=== PATIENT | female | born 1975 | race African-American/Black ===

== ENCOUNTER → 2020-04-15 08:13 | Outpatient (BNVA) | payer OTHER, SELFPAY | PROVIDERS: Visit Provider Internal Medicine | DX: S83.241A Other tear of medial meniscus, current injury, right knee, initial encounter (principal); W10.9XXA Fall (on) (from) unspecified stairs and steps, initial encounter | CPT/HCPCS: 99213 ==

== ENCOUNTER → 2020-04-25 08:19 | Outpatient (BNVA) | payer OTHER, SELFPAY | PROVIDERS: Visit Provider Internal Medicine | DX: R10.31 Right lower quadrant pain (principal); M79.604 Pain in right leg | CPT/HCPCS: 99213 ==

== ENCOUNTER 2020-04-28 18:52 | Outpatient (REF) | payer OTHER, SELFPAY ==
--- NOTE | 2020-04-28 19:45 | MR_ITS ---
EXAMINATION: MR LUMBAR SPINE WITHOUT CONTRAST CLINICAL INFORMATION: Back injury. Right lower extremity radicular symptoms. COMPARISON: None. TECHNIQUE: MRI of the lumbar spine was obtained using routine sequences without contrast. FINDINGS: VERTEBRAL BODIES AND PARASPINAL STRUCTURES: The marrow signal is within normal limits. Endplate Schmorl's nodes and mild disc space narrowing visible at the lower thoracic levels. No marrow or soft tissue edema is seen. There are no compression fractures or subluxations. The paraspinal soft tissues are unremarkable. The imaged bony pelvis appears normal. CONUS MEDULLARIS AND CAUDA EQUINA: Normal, terminating at the level of L1-L2. No lower cord signal abnormality is seen. The cauda equina nerve roots are normal. Small fatty filum visible. SPINAL LEVELS: L1-L2: No disc pathology. No central canal stenosis or foraminal narrowing. L2-L3: Well-hydrated disc with a minimal annular bulge. Patent central canal and foramina. L3-L4: No disc abnormality. No central canal stenosis or foraminal narrowing. L4-L5: Disc degeneration and endplate Schmorl's nodes with hypertrophic facet arthropathy. No focal protrusion, central canal stenosis, or foraminal narrowing. L5-S1: Minimal posterior disc bulge and [id number] facet arthropathy. No central canal stenosis. Facet spurring encroaches upon the superior portions of the neural foramina with mild distortion of the exiting L5 nerve roots bilaterally. MR/MR lumbar spine wo con IMPRESSION: Mild lumbar spondylitic changes. No focal disc protrusion or central canal stenosis. Facet arthropathy mildly encroaches upon the neural foramina at L5-S1 with mild distortion of the exiting L5 nerve root.
== END 2020-04-28 18:53 | disposition home or self-care (01) ==
LOC: HO.MRI 18:52
PROVIDERS: PCP Physician Assistant; Visit Provider Internal Medicine
DX: S39.92XA Unspecified injury of lower back, initial encounter (principal); S39.91XA Unspecified injury of abdomen, initial encounter
CPT/HCPCS: 72148

== ENCOUNTER → 2020-05-01 08:08 | Outpatient (BNVA) | payer OTHER, SELFPAY | PROVIDERS: PCP Physician Assistant; Visit Provider Internal Medicine | DX: R10.31 Right lower quadrant pain (principal); M79.604 Pain in right leg | CPT/HCPCS: 99214 ==

== ENCOUNTER → 2020-05-14 08:03 | Outpatient (BNVA) | payer OTHER, SELFPAY | PROVIDERS: PCP Physician Assistant; Visit Provider Internal Medicine | DX: M54.41 Lumbago with sciatica, right side (principal); M79.604 Pain in right leg | CPT/HCPCS: 99214 ==

== ENCOUNTER 2020-05-16 13:23 | Outpatient (REF) | payer OTHER, SELFPAY ==
--- NOTE | 2020-05-16 14:06 | XR_ITS ---
EXAMINATION: BILATERAL HAND AND WRIST X-RAY CLINICAL INFORMATION: Abnormal and urologic findings in serum COMPARISON: None TECHNIQUE: 4 views of each hand and wrist FINDINGS: Bone alignment is normal. No fracture or dislocation is seen. Bone mineralization is normal. Joint spaces are normal. Soft tissues are normal. XR/XR hand wrist RT IMPRESSION: Unremarkable exam.
--- NOTE | 2020-05-16 14:06 | XR_ITS ---
EXAMINATION: BILATERAL HAND AND WRIST X-RAY CLINICAL INFORMATION: Abnormal and urologic findings in serum COMPARISON: None TECHNIQUE: 4 views of each hand and wrist FINDINGS: Bone alignment is normal. No fracture or dislocation is seen. Bone mineralization is normal. Joint spaces are normal. Soft tissues are normal. XR/XR hand wrist LT IMPRESSION: Unremarkable exam.
== END 2020-05-16 13:24 | disposition home or self-care (01) ==
LOC: HO.XRAY 13:23
PROVIDERS: PCP Physician Assistant; Visit Provider Student in an Organized Health Care Education/Training Program
DX: R76.8 Other specified abnormal immunological findings in serum (principal)
CPT/HCPCS: 73110; 73130; 99212

== ENCOUNTER → 2020-05-28 11:57 | Outpatient (BNVA) | payer OTHER, SELFPAY | PROVIDERS: PCP Physician Assistant; Visit Provider Internal Medicine | DX: M54.41 Lumbago with sciatica, right side (principal) | CPT/HCPCS: 99213 ==

== ENCOUNTER 2020-06-03 14:34 | Outpatient (REF) | payer OTHER, SELFPAY ==
[2020-06-03 16:59] LABS: INTERNATIONAL NORM RATIO 1.1 (0.9-1.1); Prothrombin Time 13.2 SEC (10.8-13.0)
[2020-06-05 15:02] LABS: Prot Elec - Alpha1 0.3 g/dL (0.2-0.3); Prot Elec - Alpha2 0.8 g/dL (0.5-0.9); Prot Elec - Beta 1 0.5 g/dL (0.4-0.6); Prot Elec - Beta 2 0.5 g/dL (0.2-0.5); Prot Elec - Gamma 1.1 g/dL (0.8-1.7); Prot Elec - Total Protein 7.2 g/dL (6.1-8.1)
[2020-06-06 15:13] LABS: Mitochondrial Antibodies NEGATIVE (NEGATIVE)
[2020-06-06 23:23] LABS: FIB-ALT 10 U/L (6-29); FIB-Alpha-2-Macroglobulin 172 mg/dL (106-279); FIB-Apolipoprotein A1 153 mg/dL (101-198); FIB-GGT 18 U/L (3-55); FIB-Haptoglobin 241 mg/dL (43-212); FIB-Total Bilirubin 0.3 mg/dL (0.2-1.2); Liver Fibrosis Score 0.04; Liver Fibrosis Stage F0; Nec Inflam Act Grade A0; Nec Inflam Act Score 0.02
[2020-06-08 09:22] LABS: Liver Kidney Microsomal Ab <=20.0 U (<=20.0)
== END 2020-06-03 14:35 | disposition home or self-care (01) ==
LOC: HO.LAB 14:34
PROVIDERS: PCP Physician Assistant; Visit Provider Internal Medicine Gastroenterology
DX: R76.8 Other specified abnormal immunological findings in serum (principal)
CPT/HCPCS: 36415; 81596; 84155; 84165; 85610; 86255; 86256; 86376; 99202

== ENCOUNTER → 2020-06-18 13:18 | Outpatient (BNVA) | payer OTHER, SELFPAY | PROVIDERS: PCP Physician Assistant; Visit Provider Internal Medicine | DX: M54.5 Low back pain (principal) | CPT/HCPCS: 99213 ==

== ENCOUNTER → 2020-07-01 14:40 | Outpatient (BNVA) | payer MEDICAID, SELFPAY | PROVIDERS: PCP Physician Assistant; Referring Provider Physician Assistant; Visit Provider Student in an Organized Health Care Education/Training Program | DX: Z76.89 Persons encountering health services in other specified circumstances (principal) ==

== ENCOUNTER → 2020-07-02 08:11 | Outpatient (BNVA) | payer OTHER, SELFPAY | PROVIDERS: PCP Physician Assistant; Visit Provider Internal Medicine | DX: M54.5 Low back pain (principal) | CPT/HCPCS: 99213 ==

== ENCOUNTER 2020-07-02 09:22 | Outpatient (REF) | payer OTHER, SELFPAY ==
--- NOTE | 2020-07-02 10:04 | US_ITS ---
EXAMINATION: US ABDOMEN COMPLETE CLINICAL INFORMATION: Fatty liver. COMPARISON: None TECHNIQUE: Real-time imaging of the abdominal viscera. FINDINGS: PANCREAS: Visualized portions unremarkable. ABDOMINAL AORTA: Unremarkable. INFERIOR VENA CAVA: Unremarkable. LIVER: Mild diffuse increased echotexture without focal abnormality. GALLBLADDER: Unremarkable. COMMON BILE DUCT: Normal in caliber measuring 0.4 cm in diameter. RIGHT KIDNEY: 10.9 cm. Unremarkable. LEFT KIDNEY: 11.4 cm. Unremarkable. SPLEEN: Normal. The spleen measures 10.1 cm in maximum dimension. FREE FLUID: None. US/US abdomen complete IMPRESSION: Fatty steatosis without other significant abnormality.
[2020-07-02 10:36] LABS: Alanine Aminotransferase 16 U/L (0-31); Albumin Level 4.1 g/dL (3.5-5.0); Alkaline Phosphatase 89 U/L (39-117); Aspartate Amino Transferase 21 U/L (5-31); Bilirubin Direct < 0.2 mg/dL (0.0-0.5); Bilirubin Total 0.3 mg/dL (0.0-1.0); Total Protein 7.2 g/dL (6.5-8.0)
[2020-07-03 11:17] LABS: Myeloperoxidase Antibody <1.0 AI; Proteinase 3 PR3 Antibodies <1.0 AI
[2020-07-10 12:33] LABS: Smooth Muscle Antibody <20 U (<20)
== END 2020-07-02 09:23 | disposition home or self-care (01) ==
LOC: HO.US 09:22
PROVIDERS: PCP Physician Assistant; Visit Provider Internal Medicine Gastroenterology
DX: R76.8 Other specified abnormal immunological findings in serum (principal); I31.3 Pericardial effusion (noninflammatory)
CPT/HCPCS: 36415; 76700; 80076; 86021; 86255

== ENCOUNTER 2020-07-11 12:46 | Outpatient (REF) | payer OTHER, SELFPAY ==
[2020-07-12 14:17] LABS: H Pylori Breath Test NOT DETECTED (NOT DETECTED)
== END 2020-07-11 12:47 | disposition home or self-care (01) ==
LOC: HO.LNP 12:46
PROVIDERS: PCP Physician Assistant; Visit Provider Surgery
DX: Z01.818 Encounter for other preprocedural examination (principal); E66.01 Morbid (severe) obesity due to excess calories; Z68.41 Body mass index [BMI] 40.0-44.9, adult; R06.02 Shortness of breath
CPT/HCPCS: 83013; 99202

== ENCOUNTER 2020-07-23 07:27 | Outpatient (REF) | payer OTHER, SELFPAY ==
--- NOTE | 2020-07-23 07:48 | ECG_ITS ---
Test Reason : SOB Blood Pressure : / mmHG Vent. Rate : 071 BPM Atrial Rate : 071 BPM P-R Int : 140 ms QRS Dur : 094 ms QT Int : 394 ms P-R-T Axes : 029 -08 020 degrees QTc Int : 428 ms Normal sinus rhythm Incomplete right bundle branch block Borderline ECG No previous ECGs available Referred By: Purvi Chavis Electronically Signed By:CJ YOUNGBLOOD
--- NOTE | 2020-07-23 07:58 | XR_ITS ---
EXAMINATION: XR CHEST CLINICAL INFORMATION: Shortness of breath COMPARISON: Previous chest x-ray March 2020 TECHNIQUE: 2 views of the chest were obtained. FINDINGS: The cardiac silhouette is slightly enlarged but stable. Hilar and mediastinal contours are unremarkable. The lungs are clear. There is no pleural effusion or pneumothorax. There are mild degenerative changes of the spine. XR/XR chest 2V IMPRESSION: Slightly enlarged cardiac silhouette similar to previous exam. No evidence for acute disease in the chest.
--- NOTE | 2020-07-23 07:58 | XR_ITS ---
EXAMINATION: BILATERAL WRIST X-RAY CLINICAL INFORMATION: ABNORMAL IMMUNOLOGICAL FINDINGS in serum COMPARISON: Previous hand and wrist x-ray May 2020 TECHNIQUE: 4 views of each wrist limiting scaphoid view FINDINGS: There may be mild ulnar minus variance. Bone alignment is otherwise normal. No fracture or dislocation is seen. Bone mineralization is normal. Joint spaces are normal. No erosions are seen. Soft tissues are normal. XR/XR wrist LT w scaphoid IMPRESSION: Question mild ulnar minus variance otherwise unremarkable exam.
--- NOTE | 2020-07-23 07:58 | XR_ITS ---
EXAMINATION: BILATERAL WRIST X-RAY CLINICAL INFORMATION: ABNORMAL IMMUNOLOGICAL FINDINGS in serum COMPARISON: Previous hand and wrist x-ray May 2020 TECHNIQUE: 4 views of each wrist limiting scaphoid view FINDINGS: There may be mild ulnar minus variance. Bone alignment is otherwise normal. No fracture or dislocation is seen. Bone mineralization is normal. Joint spaces are normal. No erosions are seen. Soft tissues are normal. XR/XR wrist RT w scaphoid IMPRESSION: Question mild ulnar minus variance otherwise unremarkable exam.
[2020-07-23 07:59] LABS: MANUAL DIFF FLAG NO
[2020-07-23 08:03] LABS: Basophils Percent Auto 0.2 % (0-2); Eosinophils Absolute Auto 0.1 X10*3/uL (0.0-0.4); Eosinophils Percent Auto 1.4 % (0-4); Hematocrit 40.9 % (37-47); Hemoglobin 13.1 g/dl (12.0-16.0); Imm Gran Abs Auto 0.01 X10*3/uL (0.00-0.03); Imm Gran Pct Auto 0.2 % (0.0-0.4); Lymphocytes Absolute Auto 1.2 X10*3/uL (1.2-4.9); Lymphocytes Percent Auto 23.8 % (20-40); Mean Corpuscular Hemoglobin 29.1 pg (27.0-33.0); Mean Corpuscular Volume 90.9 fL (80-98); Monocytes Absolute Auto 0.3 X10*3/uL (0.1-1.2); Monocytes Percent Auto 5.3 % (2-11); Neutrophils Absolute Auto 3.5 X10*3/uL (2.0-8.3); Neutrophils Percent Auto 69.1 % (45-73); Platelet Count 310 X10*3/uL (160-400); Red Cell Distribution Width 13.1 % (11.0-16.0); White Blood Count 5.1 X10*3/uL (4.8-10.8)
[2020-07-23 08:30] LABS: Alanine Aminotransferase 13 U/L (0-31); Albumin Level 4.1 g/dL (3.5-5.0); Alkaline Phosphatase 83 U/L (39-117); Anion Gap 10 (12-20); Aspartate Amino Transferase 17 U/L (5-31); Bilirubin Total 0.4 mg/dL (0.0-1.0); Blood Urea Nitrogen 13 mg/dL (9-16); C Reactive Protein 1.34 mg/dL (< or = 0.50); Carbon Dioxide 28 mmol/L (22-29); Chloride 105 mmol/L (96-108); Cholesterol 166 mg/dL; Estimated Glomerular Filt Rate > 60; Glucose Fasting 92 mg/dL (60-99); HDL Cholesterol 48 mg/dL; Iron 49 mcg/dL (30-160); LDL Cholesterol Calculated 103 mg/dl; Percent Iron Saturation 17 % (15-50); Sodium 139 mmol/L (135-145); Total Iron Binding Capacity 296 mcg/dL (228-428); Total Protein 7.3 g/dL (6.5-8.0); Triglycerides 79 mg/dL; Unsaturated Iron Binding 247 ug/dL
[2020-07-23 08:52] LABS: Thyroid Stimulating Hormone 0.88 uIU/mL (0.32-4.0); Vitamin D 25-OH Total 10.5 ng/mL (>30)
[2020-07-23 08:56] LABS: Vitamin B12 300 pg/mL (200-900)
[2020-07-24 16:33] LABS: Calcium (PTHI) 9.5 mg/dL (8.6-10.2); PTHI 58 pg/mL (14-64)
[2020-07-26 01:17] LABS: Zinc 91 mcg/dL (60-130)
[2020-07-27 08:27] LABS: Vitamin B1 <6 nmol/L (8-30)
[2020-07-28 17:58] LABS: Vitamin A 33 mcg/dL (38-98)
== END 2020-07-23 07:28 | disposition home or self-care (01) ==
LOC: HO.LAB 07:27
PROVIDERS: PCP Physician Assistant; Visit Provider Surgery
DX: Z01.818 Encounter for other preprocedural examination (principal); R06.02 Shortness of breath; I45.10 Unspecified right bundle-branch block; R76.9 Abnormal immunological finding in serum, unspecified; E55.9 Vitamin D deficiency, unspecified
CPT/HCPCS: 36415; 71046; 73110; 80053; 80061; 82306; 82607; 83540; 83970; 84425; 84443; 84590; 84630; 85025; 86140; 93005

== ENCOUNTER → 2020-07-23 08:22 | Outpatient (BNVA) | payer OTHER, SELFPAY | PROVIDERS: PCP Physician Assistant; Visit Provider Internal Medicine | DX: M54.5 Low back pain (principal); G54.9 Nerve root and plexus disorder, unspecified; M25.561 Pain in right knee | CPT/HCPCS: 99213 ==

== ENCOUNTER → 2020-07-24 08:03 | Outpatient (BNVA) | payer OTHER, SELFPAY | PROVIDERS: PCP Physician Assistant; Visit Provider Surgery ==

== ENCOUNTER 2020-07-30 07:44 | Day surgery (SDC) | payer OTHER, SELFPAY ==
--- NOTE | 2020-07-29 11:41 | P.CONAN_ITS ---
Documented by User: Edilia Wilburn 07/29/20 12:21 HPI - Anesthesia Eval Consult details Narrative: 44yo F for Upper Endoscopy PMFSH Past Medical History Medical History SANJAY positive Asthma Fibromyalgia History of migraine headaches History of umbilical hernia Mesenteric adenitis Pericardial effusion Rheumatoid factor positive Sleep apnea Family History Family History Father Arthritis History of open heart surgery Mother History of diabetes mellitus, type II History of cardiac arrhythmia Family history of high blood pressure Diabetes mellitus Hypertension Arthritis Brother Asthma Daughter No problems noted. Surgical History Surgical History History of section History of colonoscopy History of hysterectomy History of lateral meniscus repair of left knee History of sleeve gastrectomy Hx of endoscopy Social History Social History Alcohol intake: current Alcohol intake frequency: holidays/special occasions only Smoking Status: Never smoker Use of substances other than those prescribed or required for medical reasons: No Have you been hit, kicked, punched, or otherwise hurt by someone within the past year? If so, by whom?: No Advance Directives: No Advance Directives Information Provided: No Recently lost weight without trying: No Narrative Narrative: Last seen by cardiology 04/2020 without any need for further f/u. Recommended f/u with rheumatology for treatment of underlying rheumatic ds. Meds Allergies Allergy/AdvReac Type Severity Reaction Status Date / Time shrimp [SHRIMP] Allergy Severe ANAPHYLAXIS Verified 07/24/20 09:36 shrimp Allergy Severe Anaphylaxis Uncoded 07/24/20 09:36 Home Medications Medication Instructions Recorded Confirmed Type albuterol sulfate 90 mcg/actuation 2 puff INHALATION Q6H PRN 05/16/20 07/24/20 History aerosol inhaler cetirizine 10 mg tablet 10 mg PO DAILY 05/16/20 07/24/20 History epinephrine 0.3 mg/0.3 mL 0.3 mg IM Q15M PRN 05/16/20 07/24/20 History injection, auto-injector ibuprofen 800 mg tablet 800 mg PO Q8H 05/16/20 07/24/20 History Exam Exam Date and Time: July 29, 2020 1141 Pertinent Lab Results Pertinent Lab Results: Laboratory Tests 07/23/20 07/23/20 07:36 07:36 WBC 5.1 Hgb 13.1 Hct 40.9 Plt Count 310 Sodium 139 Potassium 4.0 Chloride 105 Carbon Dioxide 28 BUN 13 Creatinine 0.73 Narrative Narrative: EKG 07/2020 Normal sinus rhythm Incomplete right bundle branch block Borderline ECG No previous ECGs available Echo 04/2020 LVEF 60-65% No focal wall motion abn LV wall thickness is mildly increased Nml RV size and function No signif valve disease PA sys pressure wnl Mod-large circumferential pericard effusion measuring up to 1.8cm No evidence of cardiac tamponade Size of pericard effusion unchanged from 02/2019 Assessment and Plan Assessment Anesthesia Assessment: Chart Reviewed Documented by User: Zeinab Lira 07/30/20 08:36 [facility] Past Medical History Medical History SANJAY positive Asthma Fibromyalgia History of migraine headaches History of umbilical hernia Mesenteric adenitis Pericardial effusion Rheumatoid factor positive Sleep apnea Family History Family History Father Arthritis History of open heart surgery Mother History of diabetes mellitus, type II History of cardiac arrhythmia Family history of high blood pressure Diabetes mellitus Hypertension Arthritis Brother Asthma Daughter No problems noted. Family history of problems with anesthesia: No Surgical History Surgical History History of section History of colonoscopy History of hysterectomy History of lateral meniscus repair of left knee History of sleeve gastrectomy Hx of endoscopy History of Problems with Anesthesia: No Social History Social History Alcohol intake: current Alcohol intake frequency: holidays/special occasions only Smoking Status: Never smoker Use of substances other than those prescribed or required for medical reasons: No Have you been hit, kicked, punched, or otherwise hurt by someone within the past year? If so, by whom?: No Advance Directives: No Advance Directives Information Provided: No Recently lost weight without trying: No Meds Allergies Allergy/AdvReac Type Severity Reaction Status Date / Time shrimp [SHRIMP] Allergy Severe ANAPHYLAXIS Verified 07/24/20 09:36 shrimp Allergy Severe Anaphylaxis Uncoded 07/24/20 09:36 Home Medications Medication Instructions Recorded Confirmed Type albuterol sulfate 90 mcg/actuation 2 puff INHALATION Q6H PRN 05/16/20 07/24/20 History aerosol inhaler cetirizine 10 mg tablet 10 mg PO DAILY 05/16/20 07/24/20 History epinephrine 0.3 mg/0.3 mL 0.3 mg IM Q15M PRN 05/16/20 07/24/20 History injection, auto-injector ibuprofen 800 mg tablet 800 mg PO Q8H 05/16/20 07/24/20 History Exam Height,Weight and Vital Signs: Vital Signs Temp Pulse Resp BP Pulse Ox 07/30/20 08:02 98.9 F 108 H 18 112/78 97 Airway Mallampati Class: II TM Dist: >3cm Neck ROM: Full Heart: RRR Lungs: CTAB Assessment and Plan Assessment Anesthesia Assessment: Anesthesia Plan Discussed and Chart Reviewed Final Anesthetic Review NPO: Yes ASA Class: III Final Preanesthetic Review: No Changes in Pt Med Stat, Meds/Allgs Chart Re viewed, Consent Obtained/Reviewed and Anes Risks/Benef Reviewed Patient Risk: Intermediate Procedure Risk: Low Assessment/Block/Sedation in SS: Assess/Block/Sedation-SS Anesthetic Plan Anesthetic Plan: MAC: Disposition: Standard PACU
--- NOTE | 2020-07-29 15:17 | MHC.SHP ---
Pre-Procedural Eval Section B Chief Complaint: reflux disease Allergies: Allergies Allergy/AdvReac Type Severity Reaction Status Date / Time shrimp [SHRIMP] Allergy Severe ANAPHYLAXIS Verified 07/24/20 09:36 shrimp Allergy Severe Anaphylaxis Uncoded 07/24/20 09:36 Plan I have reviewed the history and physical and performed a pertinent physical examination on my patient. No changes have occurred unless specified.
[2020-07-30 07:58] VITALS: BMI 40.8
[2020-07-30 08:02] VITALS: BP 112/78; PULSE 108; RESP 18; TEMP 37.2; O2SAT 97
[2020-07-30] MEDS: Lactated Ringers 1,000 ML 100 ML IVCONT (08:13)
--- NOTE | 2020-07-30 08:34 | PM.OP ---
Brief Operative Note Date of Service: 07/30/20 Pre-op diagnosis: Weight gain after sleeve gastrectomy Post-op diagnosis: other (Same and normal upper endoscopy) Procedure: Esophagogastroduodenoscopy and antral biopsy x2 Implants: None Surgeon: Purvi Chavis MD Anesthesia: MAC Estimated blood loss (mL): 0 Pathology: other (Antrum x2) Condition: stable Disposition: PACU
[2020-07-30 09:02] VITALS: BP 103/64; PULSE 93; RESP 14; TEMP 37.2; O2SAT 96
[2020-07-30 09:17] VITALS: BP 101/67; PULSE 90; RESP 18; O2SAT 97
[2020-07-30 09:32] VITALS: BP 116/71; PULSE 91; RESP 18; O2SAT 98
--- NOTE | 2020-07-30 09:35 | OP_ITS ---
SURGEON: Purvi Chavis MD PREOPERATIVE DIAGNOSIS: POSTOPERATIVE DIAGNOSIS: PROCEDURE PERFORMED: Esophagogastroduodenoscopy and antral biopsy x2. ESTIMATED BLOOD LOSS: COMPLICATIONS: None. ANESTHESIA: Total intravenous anesthesia with propofol given by the nurse wood repatcher. ASSISTANTS: None. SPECIMENS: PREPROCEDURE DIAGNOSIS: Weight gain after sleeve gastrectomy many years ago. POSTPROCEDURE DIAGNOSIS: Normal upper endoscopy. DESCRIPTION OF PROCEDURE: The patient was brought into the operating room on the stretcher and placed in the left lateral decubitus position. A safety time-out was performed. A bite block was placed between the teeth. Total intravenous anesthesia was administered using propofol by the nurse wood repatcher. Once the patient was adequately sedated, the gastroscope was placed in the posterior oropharynx, passed down the esophagus, evaluating the esophageal mucosa which was normal. The GE junction was located at 36 cm from the incisors. The gastroscope was then passed into the stomach and stomach was evaluated. There were no mucosal lesions. No evidence of hiatal hernia. The gastric pouch was slightly enlarged, but with normal in size for its age. There was no evidence of torsion or stenosis. The gastroscope was passed to the pre-pyloric region. Antral biopsies x2 were taken to rule out H pylori. Gastroscope was passed through the pylorus to the 3rd portion of the duodenum. Gastroscope was retracted back in the stomach. Stomach was desufflated and the gastroscope was removed without difficulty. The patient tolerated the procedure well and was sent to recovery room in stable condition. FINDINGS: A GE junction was located at 36 cm from the incisors in the gastric pouch that is about the correct size for its age without any evidence of mucosal lesions or torsion or stenosis. CONDITION: Postprocedure, good. Purvi Chavis MD /MODL / [id number]
[2020-07-30] MEDS: Acetaminophen 325 MG TABLET 650 MG PO (09:45)
--- NOTE | 2020-07-30 10:07 | HO.POSTANES ---
Post Anesthesia Evaluation Post Anesthesia Evaluation Vital Signs: Vital Signs Temp Pulse Resp BP Pulse Ox 07/30/20 09:32 91 18 116/71 98 07/30/20 09:17 90 18 101/67 97 07/30/20 09:02 98.9 F 93 14 103/64 96 07/30/20 08:02 98.9 F 108 H 18 112/78 97 Anesthesia: Monitored Mental Status: Awake Pain Control: Satisfactory Nausea/Vomiting: None Hydration: Adequate Anesthesia-Related Issues: No Anes. Related Issues
== END 2020-07-30 09:58 | disposition home or self-care (01) ==
PROVIDERS: PCP Physician Assistant; Visit Provider Surgery
PROC: 0DJ08ZZ Inspection of Upper Intestinal Tract, Via Natural or Artificial Opening Endoscopic (ICD-10-PCS; CPT 43235; principal; 2020-07-30 08:30)
DX: K21.9 Gastro-esophageal reflux disease without esophagitis (principal); E66.01 Morbid (severe) obesity due to excess calories; Z68.41 Body mass index [BMI] 40.0-44.9, adult; R63.5 Abnormal weight gain; J45.909 Unspecified asthma, uncomplicated; Z98.84 Bariatric surgery status; R76.0 Raised antibody titer; M05.9 Rheumatoid arthritis with rheumatoid factor, unspecified; Z79.899 Other long term (current) drug therapy
CPT/HCPCS: 43239; 88305; 88342; J2250

== ENCOUNTER → 2020-07-31 15:07 | Outpatient (BNVA) | payer OTHER, SELFPAY | PROVIDERS: PCP Physician Assistant; Visit Provider Anesthesiology | DX: M47.817 Spondylosis without myelopathy or radiculopathy, lumbosacral region (principal); M54.5 Low back pain; M51.36 Other intervertebral disc degeneration, lumbar region | CPT/HCPCS: 99202 ==

== ENCOUNTER 2020-08-05 17:40 | Outpatient (REF) | payer OTHER, SELFPAY ==
--- NOTE | 2020-08-05 18:15 | MR_ITS ---
EXAMINATION: MR KNEE WITHOUT CONTRAST, RIGHT CLINICAL INFORMATION: Pain while bending knee. Stiffness. Near-fall. COMPARISON: None TECHNIQUE: MRI of the knee without contrast was performed using routine sequences on a high-field scanner. FINDINGS: MENISCI: Medial Meniscus: Complex tear of the posterior horn and body is primarily horizontal in orientation, extending to the undersurface of both the posterior horn and body near the free edge margin. Near the posterior root insertion, there is an associated radial component of the meniscus occurring 1 cm from the insertion and sparing the superior third. Surrounding soft tissues are edematous. The meniscal body is partially extruded medially. Lateral Meniscus: Free edge fraying is present at the posterior horn. No tears. LIGAMENTS: Cruciate: Intact. Collateral: Edema signal around the MCL is likely reactive to the underlying meniscal abnormality. Collateral ligaments are intact. EXTENSOR MECHANISM: Patellar enthesopathic spurs is present at the patellar tendon origin. No tendinosis. Quadriceps and patellar tendons are intact. ARTICULAR CARTILAGE/BONE: Patellofemoral Compartment: At the median ridge of the patella, there is a 1.7 x 1.7 cm area of high-grade cartilage loss with full-thickness chondral fibrillation and articular cortical irregularity as well as subchondral cystic change. More mild surrounding chondral thinning is present in this region. Moderate sized marginal osteophytes. In the superior aspect of the trochlear groove, there is a 1 x 0.8 cm area of high-grade chondral delamination. Additional chondral fissuring is present at the inferior aspect of the medial trochlear facet. Small trochlear osteophytes. Medial Compartment: Moderate sized marginal osteophytes. Moderate nonuniform chondral thinning is present at the medial femoral condyle, more pronounced posteriorly at the posterior weightbearing surface. [id number] chondral thinning is also present of the tibial plateau, most pronounced medially, with associated subchondral edema signal. Lateral Compartment: Mild chondral thinning and chondral fibrillation are present at the lateral tibial plateau posteriorly. Small marginal osteophytes. JOINT FLUID AND BURSAE: Moderate sized joint effusion. There is mild synovitis and hypertrophy of the subsynovial fat. MR/MR knee RT wo con IMPRESSION: 1. Complex tear of the posterior horn and body of the medial meniscus with a radial component near the posterior root insertion and extrusion of the meniscal body. 2. [id number] medial and patellofemoral compartment osteoarthritis. Focal high-grade chondromalacia is present at the patella centrally. 3. Minimal lateral compartment osteoarthritis with free edge fraying at the posterior horn of the lateral meniscus. 4. Moderate sized joint effusion with mild synovitis.
== END 2020-08-05 17:41 | disposition home or self-care (01) ==
LOC: HO.MRI 17:40
PROVIDERS: Visit Provider Internal Medicine
DX: M25.561 Pain in right knee (principal)
CPT/HCPCS: 73721

== ENCOUNTER → 2020-08-06 08:07 | Outpatient (BNVA) | payer OTHER, SELFPAY | PROVIDERS: PCP Physician Assistant; Visit Provider Internal Medicine | DX: M54.9 Dorsalgia, unspecified (principal); M23.8X1 Other internal derangements of right knee | CPT/HCPCS: 99214 ==

== ENCOUNTER → 2020-08-11 13:39 | Outpatient (BNVA) | payer OTHER, SELFPAY | PROVIDERS: Visit Provider Orthopaedic Surgery | DX: S83.241A Other tear of medial meniscus, current injury, right knee, initial encounter (principal) | CPT/HCPCS: 99202 ==

== ENCOUNTER → 2020-08-21 08:18 | Outpatient (BNVA) | payer OTHER, SELFPAY | PROVIDERS: PCP Physician Assistant; Visit Provider Internal Medicine | DX: M23.206 Derangement of unspecified meniscus due to old tear or injury, right knee (principal); M17.11 Unilateral primary osteoarthritis, right knee; M54.9 Dorsalgia, unspecified | CPT/HCPCS: 99213 ==

== ENCOUNTER 2020-08-27 08:00 | Day surgery (SDC) | payer OTHER, SELFPAY ==
[2020-08-20 19:14] VITALS: BMI 39.9
--- NOTE | 2020-08-26 09:28 | HO.ANESPROP2 ---
Documented by User: Edilia Wilburn 08/26/20 09:40 HPI - Anesthesia Eval Consult details Narrative: 44yo F for Knee Arthroscopy PMFSH Active Problems Active Problems: All Active Problems (Updated 08/19/20 @ 19:00 by Scotty Phillips MD) Morbid obesity due to excess calories (Acute) Preoperative examination (Acute) Shortness of breath (Acute) Body mass index (BMI) of 40.1 to 44.9 in adult (Acute) Vitamin D deficiency (Acute) Vitamin B1 deficiency (Acute) Vitamin A deficiency (Acute) NAFL (nonalcoholic fatty liver) (Acute) Tear of medial meniscus of right knee (Acute) Disc degeneration, lumbar (Acute) Low back pain (Acute) 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 myelopathy (Acute) Pericardial effusion (Acute) Rheumatoid factor positive (Acute) SANJAY positive (Acute) Past Medical History Medical History SANJAY positive Asthma Disc degeneration, lumbar Fibromyalgia History of migraine headaches History of umbilical hernia Low back pain Mesenteric adenitis Pericardial effusion Rheumatoid factor positive Sleep apnea 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 Surgical History Surgical History History of section History of colonoscopy History of hysterectomy History of lateral meniscus repair of left knee History of sleeve gastrectomy Hx of endoscopy Hx of esophagogastroduodenoscopy Social History Social History Are you a primary resident care provider to a significant other at home: No Do you presently have visiting nurse or other home services: No Alcohol intake: current Alcohol intake frequency: holidays/special occasions only Smoking Status: Never smoker Use of substances other than those prescribed or required for medical reasons: No Advance Directives: No Advance Directives Information Provided: No Advance Directives on File: No Recently lost weight without trying: No Current occupational status: employed Current occupation: [employer] - [employer] Meds Allergies Allergy/AdvReac Type Severity Reaction Status Date / Time shrimp [SHRIMP] Allergy Severe ANAPHYLAXIS Verified 08/27/20 08:21 Home Medications Medication Instructions Recorded Confirmed Last Taken Type albuterol sulfate 90 mcg/actuation 2 puff INHALATION Q6H PRN 05/16/20 08/20/20 Unknown History aerosol inhaler cetirizine 10 mg tablet 10 mg PO DAILY 05/16/20 08/20/20 Unknown History epinephrine 0.3 mg/0.3 mL 0.3 mg IM Q15M PRN 05/16/20 08/20/20 Unknown History injection, auto-injector ibuprofen 800 mg tablet 800 mg PO Q8H 05/16/20 08/20/20 Unknown History vitamin B complex 1 tab PO DAILY 07/31/20 08/20/20 Unknown History Exam Exam Date and Time: August 26, 202028 Height,Weight and Vital Signs: Height 5 ft 1 in Weight 95.708 kg Pertinent Lab Results Pertinent Lab Results: Laboratory Tests 07/23/20 07/23/20 07:36 07:36 WBC 5.1 Hgb 13.1 Hct 40.9 Plt Count 310 Sodium 139 Potassium 4.0 Chloride 105 Carbon Dioxide 28 BUN 13 Creatinine 0.73 Narrative Narrative: EKG 07/2020 Normal sinus rhythm Incomplete right bundle branch block Borderline ECG No previous ECGs available Echo 04/2020 LVEF 60-65% No focal wall motion abn LV wall thickness is mildly increased Nml RV size and function No signif valve disease PA sys pressure wnl Mod-large circumferential pericard effusion measuring up to 1.8cm No evidence of cardiac tamponade Size of pericard effusion unchanged from 02/2019 Assessment and Plan Assessment Anesthesia Assessment: Chart Reviewed Documented by User: Abigail Diaz 08/27/20 09:55 [facility] Past Medical History Medical History SANJAY positive Asthma Disc degeneration, lumbar Fibromyalgia History of migraine headaches History of umbilical hernia Low back pain Mesenteric adenitis Pericardial effusion Rheumatoid factor positive Sleep apnea 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 Surgical History Surgical History History of section History of colonoscopy History of hysterectomy History of lateral meniscus repair of left knee History of sleeve gastrectomy Hx of endoscopy Hx of esophagogastroduodenoscopy Social History Social History Are you a primary resident care provider to a significant other at home: No Do you presently have visiting nurse or other home services: No Alcohol intake: current Alcohol intake frequency: holidays/special occasions only Smoking Status: Never smoker Use of substances other than those prescribed or required for medical reasons: No Advance Directives: No Advance Directives Information Provided: No Advance Directives on File: No Recently lost weight without trying: No Current occupational status: employed Current occupation: [employer] - [employer] Meds Allergies Allergy/AdvReac Type Severity Reaction Status Date / Time shrimp [SHRIMP] Allergy Severe ANAPHYLAXIS Verified 08/27/20 08:21 Home Medications Medication Instructions Recorded Confirmed Last Taken Type albuterol sulfate 90 mcg/actuation 2 puff INHALATION Q6H PRN 05/16/20 08/20/20 Unknown History aerosol inhaler cetirizine 10 mg tablet 10 mg PO DAILY 05/16/20 08/20/20 Unknown History epinephrine 0.3 mg/0.3 mL 0.3 mg IM Q15M PRN 05/16/20 08/20/20 Unknown History injection, auto-injector ibuprofen 800 mg tablet 800 mg PO Q8H 05/16/20 08/20/20 Unknown History vitamin B complex 1 tab PO DAILY 07/31/20 08/20/20 Unknown History Exam Airway Mallampati Class: II TM Dist: >3cm Neck ROM: Full Assessment and Plan Assessment Anesthesia Assessment: Anesthesia Plan Discussed and Chart Reviewed Final Anesthetic Review NPO: Yes ASA Class: III Final Preanesthetic Review: No Changes in Pt Med Stat, Meds/Allgs Chart Reviewed, Consent Obtained/Reviewed and Anes Risks/Benef Reviewed Patient Risk: Intermediate Procedure Risk: Low Assessment/Block/Sedation in SS: Assess/Block/Sedation-SS Anesthetic Plan Anesthetic Plan: GA Disposition: Standard PACU
[2020-08-27] VITALS (10 sets, daily range): BP systolic 111–127; BP diastolic 64–76; PULSE 61–76; RESP 16–20; TEMP 36.3–37.2; O2SAT 96–100
[2020-08-27] MEDS: Lactated Ringers 1,000 ML 50 ML IV (08:56)
--- NOTE | 2020-08-27 11:00 | PM.OP ---
Brief Operative Note Date of Service: 08/27/20 Pre-op diagnosis: right knee mmt Post-op diagnosis: other (medial meniscus tear and OA) Procedure: right knee arthroscopy with partial mm and chondroplasty Surgeon: Bhavik Muñoz MD Anesthesia: GETA and local Estimated blood loss (mL): 5 Tourniquet time (min): 18 IV fluids (mL): 500 Urine output (mL): 0 Pathology: none sent Condition: stable Disposition: PACU
--- NOTE | 2020-08-27 11:02 | W.PM.OPN ---
Operative Note Operative Note Date of Service: 08/27/20 Narrative: Pre-op diagnosis: Right knee medial meniscus tear Post-op diagnosis: 1) Right knee medial meniscus tear 2) Osteoarthritis Procedure: Right knee with partial medial meniscectomy and chondroplasty Implants: none Weatherization Installer:none Anesthesia: GETA and local Estimated blood loss (mL): 5 Tourniquet time (min): 18 IV fluids (mL): 500 Pathology: none sent Condition: stable Disposition: PACU Procedure in detail: Patient was brought to the operating room placed supine on the arthroscopic table and prepped and draped in standard sterile fashion. A time-out was called to identify proper site proper procedure proper surgeon and IV antibiotics per weight were administered. I began by exsanguinating the limb and insufflating tourniquet to 300 mm Hg. Then made a standard anterolateral stab incision. The knee was insufflated with water and 30 degree arthroscope was placed. There was grade 1 fibrillations of the patella but overall suprapatellar pouch was clean and the gutters were clean. I descended into the medial compartment where I made my medial portal under direct visualization. There was obvious of complex tear of the body and posterior horn of the medial meniscus. Root was intact and there was grade 1 changes with scattered grade 3 changes throughout the medial compartment. I used a combination of biter shaver and cautery to remove unstable portions of the meniscus. Approximately 40% meniscal volume was removed. The ACL was examined and found to be intact and the lateral compartment also was without the need for intervention. I then removed all instrumentation and closed the portals with skin glue. 25 mL of 2% Marcaine with epinephrine was injected into the joint and the surrounding soft tissues. Patient was then placed in sterile dressing extubated brought recovery room stable condition. There were no known complications.
[2020-08-27] MEDS: oxyCODONE HCl Immed Release 5 MG TABLET 10 MG PO (11:19)
[2020-08-27] MEDS: fentaNYL citrate/PF 100 MCG/2 ML VIAL 50 MCG IVPUSH (11:19)
== END 2020-08-27 13:30 | disposition home or self-care (01) ==
PROVIDERS: PCP Physician Assistant; Visit Provider Orthopaedic Surgery
PROC: (CPT 29870; principal; 2020-08-27 10:00)
DX: S83.231A Complex tear of medial meniscus, current injury, right knee, initial encounter (principal); M17.11 Unilateral primary osteoarthritis, right knee; M22.2X1 Patellofemoral disorders, right knee; M54.5 Low back pain; X58.XXXA Exposure to other specified factors, initial encounter; Y93.A3 Activity, aerobic and step exercise; Y92.69 Other specified industrial and construction area as the place of occurrence of the external cause; Y99.0 Civilian activity done for income or pay; M05.9 Rheumatoid arthritis with rheumatoid factor, unspecified; M79.7 Fibromyalgia; J45.909 Unspecified asthma, uncomplicated; E66.01 Morbid (severe) obesity due to excess calories; Z68.41 Body mass index [BMI] 40.0-44.9, adult; G47.30 Sleep apnea, unspecified; Z79.899 Other long term (current) drug therapy; Z98.84 Bariatric surgery status
CPT/HCPCS: 29881; J0171; J0690; J1100; J1885; J2405; J3010

== ENCOUNTER → 2020-09-08 10:07 | Outpatient (BNVA) | payer OTHER, SELFPAY | PROVIDERS: PCP Physician Assistant; Visit Provider Physician Assistant | DX: S83.241A Other tear of medial meniscus, current injury, right knee, initial encounter (principal) | CPT/HCPCS: 99212 ==

== ENCOUNTER 2020-09-16 06:05 | Outpatient (REF) | payer OTHER, SELFPAY ==
--- NOTE | ~2020-09-16 | FL_ITS ---
EXAMINATION: XR FLUOROSCOPY WITH IMAGES CLINICAL INFORMATION: Intervertebral disc degeneration COMPARISON: None. TECHNIQUE: Fluoroscopy performed by Radha Pereira NP. Fluoroscopy time: 0.2 minutes DAP: 1.6 Gycm2 Images: 2 FINDINGS: Initial lateral view of the lumbar sacral spine demonstrates needle placement projecting over the spinal canal at the L5-S1 disc space level. Second image demonstrates needle placement and epidural contrast injection adjacent at the left L5 level. FL/FL guidance in treatment room IMPRESSION: Fluoroscopy guidance for left L5 transforaminal epidural injection.
== END 2020-09-16 06:06 | disposition home or self-care (01) ==
LOC: HO.RADIR 06:05
PROVIDERS: Visit Provider Anesthesiology
DX: M51.36 Other intervertebral disc degeneration, lumbar region (principal); M47.817 Spondylosis without myelopathy or radiculopathy, lumbosacral region
CPT/HCPCS: 64483; J3300; Q9967

== ENCOUNTER → 2020-10-06 13:52 | Outpatient (BNVA) | payer OTHER, SELFPAY | PROVIDERS: Visit Provider Physician Assistant | DX: S83.241D Other tear of medial meniscus, current injury, right knee, subsequent encounter (principal) | CPT/HCPCS: 99212 ==

== ENCOUNTER → 2020-10-24 09:33 | Outpatient (BNVA) | payer OTHER, SELFPAY | PROVIDERS: PCP Physician Assistant; Visit Provider Physician Assistant | DX: S83.241D Other tear of medial meniscus, current injury, right knee, subsequent encounter (principal) | CPT/HCPCS: 99212 ==

== ENCOUNTER → 2020-11-05 09:59 | Outpatient (BNVA) | payer OTHER, SELFPAY | PROVIDERS: PCP Physician Assistant; Visit Provider Anesthesiology ==

== ENCOUNTER → 2020-11-06 08:18 | Outpatient (BNVA) | payer OTHER, SELFPAY | PROVIDERS: PCP Physician Assistant; Visit Provider Anesthesiology | DX: M47.817 Spondylosis without myelopathy or radiculopathy, lumbosacral region (principal); M54.5 Low back pain; M51.36 Other intervertebral disc degeneration, lumbar region; M46.1 Sacroiliitis, not elsewhere classified | CPT/HCPCS: 99212 ==

== ENCOUNTER → 2020-11-13 09:06 | Outpatient (BNVA) | payer OTHER, SELFPAY | PROVIDERS: PCP Physician Assistant; Visit Provider Orthopaedic Surgery | DX: S83.241D Other tear of medial meniscus, current injury, right knee, subsequent encounter (principal) | CPT/HCPCS: 20610; 99212; J1100 ==

== ENCOUNTER → 2020-11-21 09:52 | Outpatient (BNVA) | payer OTHER, SELFPAY | PROVIDERS: PCP Physician Assistant; Visit Provider Physician Assistant | DX: E66.01 Morbid (severe) obesity due to excess calories (principal); S83.241A Other tear of medial meniscus, current injury, right knee, initial encounter; M25.561 Pain in right knee; M51.36 Other intervertebral disc degeneration, lumbar region; M79.7 Fibromyalgia; M54.5 Low back pain; M46.1 Sacroiliitis, not elsewhere classified; M47.817 Spondylosis without myelopathy or radiculopathy, lumbosacral region; Z91.013 Allergy to seafood; Z68.41 Body mass index [BMI] 40.0-44.9, adult | CPT/HCPCS: 99212 ==

== ENCOUNTER 2020-11-26 17:00 | Outpatient (RCR) | payer OTHER, SELFPAY ==
--- NOTE | 2020-09-18 18:17 | MHC.PT.EP ---
[facility] [place] Office [place] Office [place] Office [address] [phone] F: [phone] F: [phone] F: [phone] F: [phone] Physical Therapy Plan of Care Date of Evaluation: 09/18/20 Date of Surgery: 08/27/20 Diagnosis: R knee medial menisectomy and chronroplasty DOS 08/27/20 Assessment: Pt is a 44 y/o female referred to PT for eval and treat of s/p arthroscopic R medial meniscectomy and chondroplasty resulting in decreased tolerance for standing and walking for duration, rolling in bed, performing squatting activities as well as heavy HH chores secondary to decreased R knee and B hip strength, decreased R knee ROM, gait abnormality, healing process, and pain. Pt is deemed an appropriate candidate to receive skilled PT in order to address her physical limitations to improve her functional ability. Frequency and Duration: The patient will be seen 2 x / wk x 6 wks. Short Term Goals: In 1 week: initiate HEP with evidence of compliance. In 3 weeks: full knee extension achieved; initial 20 degrees at assessment. In 3 weeks: knee flexion > 119 degrees; initial 85. Chcf Goals: In 6 weeks; descends stairs reciprocally; initial: unable. In 6 weeks: I with HEP. In 6 weeks: improve R knee extension MMT to > 4+/5. In 6 weeks: Pt will be able to walk 1 mile with managed symptoms; initial: unable. Treatment Plan: Modalities to reduce pain, spasms and effusion. Manual therapy to restore motion and function. Therapeutic exercise to improve strength and flexibility. Neuromuscular re-education for posture and balance. Therapeutic activities to return to functional activities of daily living. Electronically signed by: Jason Lockett PT. Please sign and return to therapist. Thank you for your referral.
--- NOTE | 2021-01-27 11:48 | MHC.PT.DC ---
[facility] [place] Office [place] Office [place] Office [address] [facility] [phone] F: [phone] F: [phone] F: [phone] F: [phone] Physical Therapy Discharge Report Diagnosis: R knee medial menisectomy and chronroplasty DOS 08/27/20 Date of Surgery: 08/27/20 Date of Evaluation: 09/18/20 Date of Discharge: 01/27/21 Treatments to Date: 16 Cancellations to Date: 2 No Shows to Date: 3 Discharge Status: Improved Function Independent with HEP Visit Non-compliance Discharge Summary: Pt connie NWB exs without an increase in c/o knee pain. Pt I with HEP Electronically signed by: Jason Lockett PT. Please sign and return to therapist. Thank you for your referral.
== END 2021-01-27 11:48 | disposition home or self-care (01) ==
LOC: HO.PTCHIC 17:00
PROVIDERS: PCP Physician Assistant; Visit Provider Physician Assistant
DX: S83.241A Other tear of medial meniscus, current injury, right knee, initial encounter (principal)
CPT/HCPCS: 97110; 97140; 97161; 97164

== ENCOUNTER 2020-12-16 06:30 | Outpatient (REF) | payer OTHER, SELFPAY | END 2020-12-16 06:31 | disposition home or self-care (01) | LOC: HO.RADIR 06:30 | PROVIDERS: Visit Provider Anesthesiology | DX: Z13.89 Encounter for screening for other disorder (principal) | CPT/HCPCS: J3300; Q9967 ==

== ENCOUNTER 2021-01-07 14:39 | Outpatient (REF) | payer OTHER, SELFPAY ==
[2021-01-07 15:50] LABS: MANUAL DIFF FLAG NO
[2021-01-07 15:56] LABS: Basophils Percent Auto 0.3 % (0-2); Eosinophils Absolute Auto 0.1 X10*3/uL (0.0-0.4); Eosinophils Percent Auto 0.6 % (0-4); Hemoglobin 13.1 g/dl (12.0-16.0); Imm Gran Abs Auto 0.03 X10*3/uL (0.00-0.03); Imm Gran Pct Auto 0.3 % (0.0-0.4); Lymphocytes Absolute Auto 1.6 X10*3/uL (1.2-4.9); Lymphocytes Percent Auto 17.6 % (20-40); Mean Corpuscular Volume 90.7 fL (80-98); Mean Platelet Volume 12.5 fL (9.4-12.3); Monocytes Absolute Auto 0.4 X10*3/uL (0.1-1.2); Monocytes Percent Auto 4.5 % (2-11); Neutrophils Absolute Auto 6.9 X10*3/uL (2.0-8.3); Neutrophils Percent Auto 76.7 % (45-73); Platelet Count 309 X10*3/uL (160-400); Red Blood Count 4.52 X10*6/uL (4.20-5.50)
[2021-01-07 16:04] LABS: Glucose Urine UA NEG (NEG); Leukocyte Esterase Urine NEG (NEG); Nitrite Urine NEG (NEG); Specific Gravity - Urine >= 1.030 (1.005-1.025); Urine Blood NEG (NEG); Urine Ketones NEG (NEG); Urine Protein TRACE MG/DL (NEG-TRACE)
[2021-01-07 16:08] LABS: Appearance Urine HAZY; Color Urine YELLOW
[2021-01-07 16:21] LABS: Alanine Aminotransferase 8 U/L (0-31); Albumin Level 4.1 g/dL (3.5-5.0); Alkaline Phosphatase 83 U/L (39-117); Anion Gap 13 (12-20); Aspartate Amino Transferase 15 U/L (5-31); Bilirubin Total 0.4 mg/dL (0.0-1.0); Blood Urea Nitrogen 12 mg/dL (9-16); C Reactive Protein 0.67 mg/dL (< or = 0.50); Calcium 9.5 mg/dL (8.4-10.2); Carbon Dioxide 24 mmol/L (22-29); Chloride 107 mmol/L (96-108); Estimated Glomerular Filt Rate > 60; Glucose Random 101 mg/dL (60-115); Potassium 4.2 mmol/L (3.3-5.1); Sodium 140 mmol/L (135-145); Total Protein 7.2 g/dL (6.5-8.0)
[2021-01-07 16:50] LABS: Bacteria Urine 4+ /LPF; Calcium Oxalate Crystals Urine TRACE /LPF; RBC Urine 0 /HPF (0); Squamous Epithelial Cell Urine 4+ /LPF; WBC Urine 0 /HPF (0-4)
[2021-01-07 16:58] LABS: Erythrocyte Sedimentation Rate 14 MM/HR (0-20)
[2021-01-08 10:17] LABS: Complement C3 145 mg/dL (83-193)
[2021-01-09 14:01] LABS: Anti DNA DS Antibody 1 IU/mL; SM/Ribonucleoprotein Ab <1.0 NEG AI (<1.0 NEG); Smith Protein <1.0 NEG AI (<1.0 NEG)
== END 2021-01-07 14:40 | disposition home or self-care (01) ==
LOC: HO.LAB 14:39
PROVIDERS: PCP Physician Assistant; Visit Provider Student in an Organized Health Care Education/Training Program
DX: R76.8 Other specified abnormal immunological findings in serum (principal)
CPT/HCPCS: 36415; 80053; 81001; 85025; 85652; 86140; 86160; 86225; 86235

== ENCOUNTER → 2021-01-15 08:50 | Outpatient (BNVA) | payer OTHER, SELFPAY | PROVIDERS: Visit Provider Student in an Organized Health Care Education/Training Program | DX: R76.8 Other specified abnormal immunological findings in serum (principal) | CPT/HCPCS: 99212 ==

== ENCOUNTER 2021-02-17 06:13 | Outpatient (REF) | payer OTHER, SELFPAY | END 2021-02-17 06:14 | disposition home or self-care (01) | LOC: HO.RADIR 06:13 | PROVIDERS: Visit Provider Anesthesiology | DX: Z13.89 Encounter for screening for other disorder (principal) ==

== ENCOUNTER 2021-07-20 09:42 | Outpatient (REF) | payer OTHER, SELFPAY ==
--- NOTE | ~2021-07-20 | XR_ITS ---
EXAMINATION: XR KNEES, STANDING AP XR KNEE, RIGHT CLINICAL INFORMATION: Pain right knee; M25.569 COMPARISON: Radiographs left knee 11/28/2018, MR right knee 08/05/2020 TECHNIQUE: Standing AP view of both knees is performed. Right knee is also imaged in lateral and axial patella views. FINDINGS: Right knee shows narrowing medial knee joint compartment with mild degenerative changes patellofemoral joint. There is small to moderate suprapatellar effusion. No erosive change or chondrocalcinosis. No destructive process or periostitis. No lateralization patella. Some mild spurring is present at origin patellar tendon. Frontal view left knee is unremarkable with no joint narrowing or erosive change or chondrocalcinosis. XR/XR knee RT 2V IMPRESSION: Osteoarthritic changes right knee with moderate medial compartment narrowing and small to moderate suprapatellar effusion. Left knee unremarkable.
--- NOTE | ~2021-07-20 | XR_ITS ---
EXAMINATION: XR KNEES, STANDING AP XR KNEE, RIGHT CLINICAL INFORMATION: Pain right knee; M25.569 COMPARISON: Radiographs left knee 11/28/2018, MR right knee 08/05/2020 TECHNIQUE: Standing AP view of both knees is performed. Right knee is also imaged in lateral and axial patella views. FINDINGS: Right knee shows narrowing medial knee joint compartment with mild degenerative changes patellofemoral joint. There is small to moderate suprapatellar effusion. No erosive change or chondrocalcinosis. No destructive process or periostitis. No lateralization patella. Some mild spurring is present at origin patellar tendon. Frontal view left knee is unremarkable with no joint narrowing or erosive change or chondrocalcinosis. XR/XR knee standing BI IMPRESSION: Osteoarthritic changes right knee with moderate medial compartment narrowing and small to moderate suprapatellar effusion. Left knee unremarkable.
== END 2021-07-20 09:43 | disposition home or self-care (01) ==
LOC: HO.HOSX 09:42
PROVIDERS: PCP Physician Assistant; Visit Provider Physician Assistant
DX: M17.11 Unilateral primary osteoarthritis, right knee (principal); E66.01 Morbid (severe) obesity due to excess calories; Z68.41 Body mass index [BMI] 40.0-44.9, adult; S83.241A Other tear of medial meniscus, current injury, right knee, initial encounter; R76.8 Other specified abnormal immunological findings in serum
CPT/HCPCS: 20610; 73560; 73565; 99212; J1040

== ENCOUNTER 2021-08-05 13:59 | Outpatient (REF) | payer OTHER, SELFPAY ==
[2021-08-07 15:41] LABS: H Pylori Breath Test Negative (Negative)
== END 2021-08-05 14:00 | disposition home or self-care (01) ==
LOC: HO.LNP 13:59
PROVIDERS: PCP Physician Assistant; Visit Provider Physician Assistant
DX: Z01.818 Encounter for other preprocedural examination (principal); E66.01 Morbid (severe) obesity due to excess calories; Z79.899 Other long term (current) drug therapy; Z71.3 Dietary counseling and surveillance
CPT/HCPCS: 83013; 99211; 99212

== ENCOUNTER 2021-08-10 08:44 | Outpatient (REF) | payer OTHER, SELFPAY ==
--- NOTE | ~2021-08-10 | XR_ITS ---
EXAMINATION: XR CHEST CLINICAL INFORMATION: Morbid obesity COMPARISON: Chest x-ray 07/23/2020 TECHNIQUE: 2 views of the chest were obtained. FINDINGS: Cardiac silhouette is normal in size. The lungs are well aerated. There is no lobar consolidation. No pleural effusion or pneumothorax. Mild degenerative changes of the spine. XR/XR chest 2V IMPRESSION: No acute pulmonary pathology.
--- NOTE | 2021-08-10 08:50 | ECG_ITS ---
Test Reason : MORBID OBESITY Blood Pressure : / mmHG Vent. Rate : 068 BPM Atrial Rate : 068 BPM P-R Int : 152 ms QRS Dur : 096 ms QT Int : 394 ms P-R-T Axes : 043 -07 028 degrees QTc Int : 418 ms Normal sinus rhythm with sinus arrhythmia Incomplete right bundle branch block Borderline ECG When compared with ECG of 23-JUL-2020 07:52, No significant change was found Referred By: India Alanis Electronically Signed By:Kodi Newton
[2021-08-10 09:05] LABS: MANUAL DIFF FLAG NO
[2021-08-10 09:51] LABS: Basophils Percent Auto 0.3 % (0-2); Eosinophils Percent Auto 0.4 % (0-4); Hematocrit 40.7 % (37.0-47.0); Hemoglobin 13.2 g/dl (12.0-16.0); Imm Gran Abs Auto 0.03 X10*3/uL (0.00-0.03); Imm Gran Pct Auto 0.4 % (0.0-0.4); Lymphocytes Absolute Auto 1.6 X10*3/uL (1.2-4.9); Lymphocytes Percent Auto 20.9 % (20-40); Mean Corpuscular HGB Conc 32.4 g/dl (31.0-35.0); Mean Corpuscular Hemoglobin 29.5 pg (27.0-33.0); Mean Corpuscular Volume 91.1 fL (80.0-98.0); Monocytes Absolute Auto 0.4 X10*3/uL (0.1-1.2); Monocytes Percent Auto 5.4 % (2-11); Neutrophils Absolute Auto 5.4 x10*3/uL (2.0-8.3); Neutrophils Percent Auto 72.6 % (45-73); Platelet Count 275 X10*3/uL (160-400); Red Blood Count 4.47 X10*6/uL (4.20-5.50); Red Cell Distribution Width 13.1 % (11.0-16.0); White Blood Count 7.4 X10*3/uL (4.8-10.8)
[2021-08-10 10:02] LABS: Estimated Average Glucose 120 mg/dL; Hemoglobin A1c % 5.8 %
[2021-08-10 10:17] LABS: Alanine Aminotransferase 10 U/L (0-31); Albumin Level 3.9 g/dL (3.5-5.0); Alkaline Phosphatase 82 U/L (39-117); Anion Gap 9 (12-20); Aspartate Amino Transferase 15 U/L (5-31); Bilirubin Total 0.7 mg/dL (0.0-1.0); Blood Urea Nitrogen 12 mg/dL (9-16); Calcium 9.3 mg/dL (8.4-10.2); Carbon Dioxide 29 mmol/L (22-29); Chloride 105 mmol/L (96-108); Cholesterol 183 mg/dL; Estimated Glomerular Filt Rate > 60; Glucose Random 91 mg/dL (60-115); HDL Cholesterol 61 mg/dL; Iron 99 mcg/dL (30-160); LDL Cholesterol Calculated 106 mg/dl; Percent Iron Saturation 34 % (15-50); Potassium 4.3 mmol/L (3.3-5.1); Sodium 139 mmol/L (135-145); Total Iron Binding Capacity 295 mcg/dL (228-428); Total Protein 6.9 g/dL (6.5-8.0); Triglycerides 84 mg/dL; Unsaturated Iron Binding 196 ug/dL
[2021-08-10 10:38] LABS: Ferritin 62 ng/mL (10-250); Insulin 11 uU/mL (2-29); TSH reflex Free T4 1.07 uIU/mL (0.32-4.0); Vitamin D 25-OH Total 17.2 ng/mL (>30)
[2021-08-10 10:50] LABS: Folate 17.7 ng/mL (> or = 4.0); Vitamin B12 370 pg/mL (200-900)
[2021-08-12 14:51] LABS: Calcium (PTHI) 9.4 mg/dL (8.6-10.2); PTHI 51 pg/mL (14-64)
[2021-08-13 23:17] LABS: Zinc 64 mcg/dL (60-130)
[2021-08-14 11:47] LABS: Vitamin B1 7 nmol/L (8-30)
[2021-08-17 11:42] LABS: Vitamin A 76 mcg/dL (38-98)
== END 2021-08-10 08:45 | disposition home or self-care (01) ==
LOC: HO.XRAY 08:44
PROVIDERS: PCP Physician Assistant; Visit Provider Physician Assistant
DX: Z01.818 Encounter for other preprocedural examination (principal); E66.01 Morbid (severe) obesity due to excess calories
CPT/HCPCS: 36415; 71046; 80053; 80061; 82306; 82607; 82728; 82746; 83036; 83525; 83540; 83970; 84425; 84443; 84590; 84630; 85025; 86140; 93005

== ENCOUNTER → 2021-08-19 07:53 | Outpatient (REF) | payer OTHER, SELFPAY ==
--- NOTE | 2021-08-19 08:19 | CA_ITS ---
Acquisition Time: 2021-08-19 08:18:31 Total Exercise Time: 00:06:45 Test Indications: RBBB, PREOP Medications: SEE CHART Protocol: ANDREW Max HR: 150 BPM 85% of Pred: 176 BPM Max BP: 144/070 mmHG Max Work Load: 8.1 METS Exercise stress test with exercise 6 min 45 sec of Andrew protocol, achieving 76% MPHR, with significant artifact on screen and patient report of fatigue and need to stop, with mild shortness of breath, no chest discomfort, with isolated PVC, with normotensive response to exercise, with artifact during exercise, without EKG changes of ischemia in recovery. Accurracy to assess for ischemia decreased due to not acheiving 85% MPHR. Test reviewed with Dr Thacker. Suboptimal test for ischemia. Message sent to Rebecca LIMA with recommendation for pharmacological nuclear stress test if further eval for ischemia is warranted. Referred By: Glenn Chowdhury Overread By: AMOS VEGA
== END ==
LOC: HO.CARD 07:53
PROVIDERS: Visit Provider Physician Assistant
DX: Z01.818 Encounter for other preprocedural examination (principal); I45.10 Unspecified right bundle-branch block; I10 Essential (primary) hypertension
CPT/HCPCS: 93017

== ENCOUNTER → 2021-08-26 08:05 | Outpatient (BNVA) | payer OTHER, SELFPAY | PROVIDERS: PCP Physician Assistant; Visit Provider Physician Assistant ==

== ENCOUNTER → 2021-09-01 07:53 | Outpatient (REF) | payer OTHER, SELFPAY ==
--- NOTE | ~2021-09-01 | NM_ITS ---
Lexiscan Myocardial perfusion study Indication: Abnormal EKG, preoperative evaluation Technique: The patient was brought in for a Lexiscan perfusion study on 09/01/2021 and was injected 0.4 mg of Lexiscan intravenously. Within a minute of this injection 30 mCi of sestamibi was given intravenously. Images were obtained using the SPECT gamma camera interlaced with the gating device. Images were obtained in supine position. Resting perfusion study was performed on 09/02/2021. Patient was administered 30 mCi of sestamibi intravenously at rest. Images were then obtained in supine position. Total DLP 118mGy-cm. Images were processed with the software and compared side to side in short axis, horizontal long axis and vertical long axis views. Findings: Raw acquisition was reviewed. The stress perfusion study showed no significant perfusion abnormality. Both uncorrected as well as CT attenuation corrected images were reviewed. The gated study shows normal LV systolic function with calculated LVEF of 71%. LV cavity is normal in size. The gated study shows normal wall thickening and contraction of segments. Resting study shows no significant perfusion abnormality. Gating at rest reveals normal wall motion with ejection fraction at 70%. The findings are consistent with no definite reversible or fixed perfusion abnormality. NM/NM cardiolite stress test Impression: 1. Myocardial perfusion imaging study shows likely normal myocardial perfusion. No evidence of any ischemia or infarction. 2. Gated LVEF is 71% during stress and 70% during rest. 3. Transient ischemic dilatation not present. EKG component of the test reported separately.
--- NOTE | 2021-09-01 07:56 | CA_ITS ---
Acquisition Time: 2021-09-01 07:50:08 Total Exercise Time: 00:02:00 Test Indications: Abnormal ECG Medications: ALBUTEROL CETIRIZINE Protocol: LEXISCAN Max HR: 125 BPM 71% of Pred: 176 BPM Max BP: 110/068 mmHG Max Work Load: 1.6 METS Pharmacological stress test with Lexiscan injection, while walking on treadmill, without anginal symptoms, with isolated PVC, with normotensive response to injection, with nondiagnostic EKG for ischemia. Nuclear images pending. Test reviewed with Dr Newton. Referred By: India Alanis Overread By: AMOS VEGA
== END ==
LOC: HO.CARD 07:53
PROVIDERS: Visit Provider Physician Assistant
DX: I45.10 Unspecified right bundle-branch block (principal); R06.02 Shortness of breath; E66.01 Morbid (severe) obesity due to excess calories
CPT/HCPCS: 78452; 93017; A9500; J0280; J2785

== ENCOUNTER 2021-09-08 09:11 | Outpatient (REF) | payer OTHER, SELFPAY ==
--- NOTE | ~2021-09-08 | US_ITS ---
EXAMINATION: US COMPLETE ABDOMEN WITH LIVER ELASTOGRAPHY CLINICAL INFORMATION: Obesity COMPARISON: Previous ultrasound of the abdomen June 2020 TECHNIQUE: Real-time imaging of the abdominal viscera. Noninvasive ultrasound liver fibrosis assessment is performed using William ElastPQ point quantification shear wave elastography (2D-SWE) with a C5-2 MHz transducer. Multiple elastography samples are obtained. FINDINGS: PANCREAS: Not visualized due to bowel gas ABDOMINAL AORTA: The proximal, middle, and distal aortic segments are normal in caliber. INFERIOR VENA CAVA: Visualized portions are normal. LIVER: Liver echotexture is increased. The liver demonstrates normal size and contour. No focal lesion or intrahepatic biliary duct dilatation. The right lobe measures 18 cm in length. The left lobe measures 12 cm in length. Portal flow is normal/hepatopedal Shear wave liver elastography median stiffness is 1.4 m/s (reference: normal median stiffness is 1.3 m/s or less). IQR/median stiffness to assess sampling precision is 0.09 (reference: good quality data set is IQR/median stiffness of 0.15 or less). GALLBLADDER: Normal. The gallbladder is physiologically distended without evidence of stones, sludge, polyps, wall thickening or pericholecystic fluid. COMMON BILE DUCT: Normal in caliber measuring 0.4 cm in diameter. RIGHT KIDNEY: Normal. No hydronephrosis. No renal calculi or focal parenchymal lesions. The kidney measures 10.2 cm in maximum dimension. LEFT KIDNEY: Normal. No hydronephrosis. No renal calculi or focal parenchymal lesions. The kidney measures 11.4 cm in maximum dimension. SPLEEN: Normal. The spleen measures 10.3 cm in maximum dimension. FREE FLUID: None. US/US abdomen comp w elastography IMPRESSION: 1. Impression: Echogenic liver probably representing fatty infiltration. Limited visualization of the pancreas. 2. Liver elastography: Adequate liver sampling. In the absence of other known clinical signs, rules out compensated advanced chronic liver disease. REFERENCE: Society of Radiologists in Ultrasound Liver Stiffness Thresholds (2020): LIVER STIFFNESS THRESHOLDS: *Liver Stiffness equal or less than 1.3 m/s: High probability of being normal. *Liver Stiffness less than 1.7 m/s: In the absence of other known clinical signs, rules out compensated advanced chronic liver disease. *Liver Stiffness 1.7-2.1 m/s: Suggestive of compensated advanced chronic liver disease but need further test for confirmation. *Liver Stiffness over 2.1 m/s: Rules in compensated advanced chronic liver disease. *Liver Stiffness over 2.4 m/s: Suggestive of clinically significant portal hypertension. QUALITY OF DATA SET: *IQR/Median value equal or less than 0.15 implies a quality data set. *IQR/Median value over 0.15 implies a poor quality data set. SIGNIFICANT CHANGE FROM PRIOR EXAM: Significant change if liver stiffness measurement is 10% or greater from prior exam. OTHER CONSIDERATIONS: The stage of liver fibrosis may be overestimated in the setting of acute hepatitis, liver inflammation, elevated liver function tests, hepatic vascular congestion, obstructive cholestasis, non-fasting state, and infiltrative diseases such as amyloidosis and lymphoma. In some patients with NAFLD, the liver stiffness thresholds for compensated advanced chronic liver disease may be lower. In causes other than viral hepatitis and NAFLD, liver stiffness thresholds are not well established.
--- NOTE | ~2021-09-08 | FL_ITS ---
EXAMINATION: XR FLUOROSCOPY UPPER GI WITH AIR CLINICAL INFORMATION: Obesity. History of gastric sleeve 2007. COMPARISON: None. TECHNIQUE: Upper GI was performed using thin and thick barium and effervescent granules. FINDINGS: Esophageal motility is normal. No significant hernia or reflux is seen. The stomach and duodenum are normal appearing. No fold thickening, mass, ulcer or stricture seen. FLUOROSCOPY TIME: 0.4 minutes DOSE AREA PRODUCT: 4.3 Gy-cm2 IMAGES: 21 saved fluoroscopic images FL/FL upper GI w air IMPRESSION: Unremarkable examination.
== END 2021-09-08 09:12 | disposition home or self-care (01) ==
LOC: HO.US 09:11
PROVIDERS: Visit Provider Physician Assistant
DX: Z01.818 Encounter for other preprocedural examination (principal); E66.01 Morbid (severe) obesity due to excess calories; K21.9 Gastro-esophageal reflux disease without esophagitis
CPT/HCPCS: 74246; 76705; 76981

== ENCOUNTER → 2021-09-14 08:18 | Outpatient (BNVA) | payer OTHER, SELFPAY | PROVIDERS: PCP Physician Assistant; Visit Provider Dietitian, Registered | DX: E66.01 Morbid (severe) obesity due to excess calories (principal); Z68.38 Body mass index [BMI] 38.0-38.9, adult | CPT/HCPCS: 97802 ==

== ENCOUNTER → 2021-09-23 08:31 | Outpatient (REF) | payer OTHER, SELFPAY ==
--- NOTE | 2021-09-23 08:35 | CA_ITS ---
Transthoracic Echocardiogram Patient (Last, First, Middle): Jerica Caputo X Gender: Female Date of : 1975 Age: 45 Procedure Date: 09/23/2021 Procedure Type: Transthoracic Echocardiogram Location: OP Height: 154.94 cm Weight: 93.9 kg BSA: 1.92 m2 Heart Rate: bpm BP: 110 / 80 mmHg Human Resources Administrator: YR/TO Referring MD: [place] Alanis PA-C Price Accuracy Supervisor: Faustino Thacker MD Symptoms: I45.10 - Unspecified right bundle-branch block Study Quality: Fair ECG Rhythm: Sinus Conclusions: - 1. Normal LV systolic and diastolic function 2. Mild mitral regurgitation 3. Normal RV systolic pressure 4. Small to moderate pericardial effusion Findings Left Ventricle Normal left ventricular size, thickness, and systolic function. The visually estimated ejection fraction is between 55-60%. Spectral Doppler is indicative of a normal filling pattern. Right Ventricle Normal right ventricular cavity size and systolic function. Atria The left atrium is likely dilated. Interatrial shunt cannot be excluded. The right atrium is normal in size. Aortic Valve Normal aortic valve structure and function. There is no aortic valve stenosis. There is trace (trivial) aortic valve regurgitation. Mitral Valve There is mild anterior and posterior mitral leaflet thickening. There is mild mitral valve regurgitation. There is no mitral valve stenosis. Pulmonic Valve The pulmonic valve was not well visualized. Tricuspid Valve Normal tricuspid valve structure. There is mild tricuspid valve regurgitation. The right ventricular systolic pressure is normal. The right ventricular systolic pressure is 31 mmHg. Normal right atrial pressure. There is no evidence of pulmonary hypertension. Great Vessels All visible segments of the aorta are normal in size. The pulmonary artery was not well visualized. Venous The inferior vena cava is normal in size and collapses greater than 50% with inspiration. Pericardium/Pleural small to moderate pericardial effusion, circumferential with more prominent posterior to left ventricle Prior Study Comparison No prior study available for comparison. Measurements 2D Linear Measurements IVSd: 0.78 0.6-0.9/0.6-1.0 cm LVIDd: 4.67 3.9-5.3/4.2-5.9 cm LVIDd Index: 2.43 2.4-3.2/2.2-3.1 cm/m2 LVIDs: 2.96 2.0-3.6 cm LVPWd: 0.96 0.7-1.1 cm LA Diam: 4.20 2.7-3.8/3.0-4.0 cm LAIDs Index: 2.19 1.5-2.3 cm/m2 LV Mass: 168.63 67-162/88-224 g LV Mass Index: 87.83 43-95/49-115 g/m2 LVOT Diam: 2.10 3.0+(-)1.3 cm 2D Systolic Function EF 4C: 56.50 >55% EF 2C: 57.20 >55% EF BiP: 56.80 >55% Mitral Valve MV Pk E: 1.18 MV PK A: 0.98 MV Decel Time: 239.00 E/A: 1.20 E'Lateral: 10.60 E'Medial: 9.25 E/E' Med: 12.80 E/E' Lat: 11.10 PHT: 70.00 MVA PHT: 3.14 Decel [place]: 4.92 Aortic Valve AoV Pk Brandon: 1.51 AoV Mn Brandon: 1.07 AoV VTI: 0.34 AoV Pk Grad: 9.00 Aov Mn Grad: 5.00 GELACIO Cont.VTI: 2.69 LVOT LVOT Pk Brandon: 1.08 LVOT Mn Brandon: 0.76 LVOT VTI: 0.26 LVOT Pk Grad: 5.00 LVOT Mn Grad: 3.00 LVOT Diam: 2.10 LVOT Area: 3.46 Diastolic Function MV Pk E: 1.18 MV Pk A: 0.98 E/A: 1.20 E'Medial: 9.25 E/E' Med: 12.80 E' Laterial: 10.60 E/E' Lat: 11.10 Right Ventricle TAPSE (mm): 20.00 TVS' Brandon: 8.49 Tricuspid Valve TR Pk Brandon: 2.64 TR Pk Grad: 28.00 RA Press: 3.00 RVSP: 31.00 Great Vessels Aorta Sinus of Valsalva: 2.99 2.0-3.[address] [place]: 2.56 1.7-3.4 cm Ao Asc: 2.90 2.1-3.4 cm Ao Arch: 2.40 Pulmonary Valve PV Pk Brandon: 0.94 Peak PV Grad: 4.00 Updated in Other Vendor System with Status of Final Faustino Thacker MD electronically signed on 09/23/2021 1:54:44 PM with status of Final
== END ==
LOC: HO.CARD 08:31
PROVIDERS: Visit Provider Physician Assistant
DX: I45.10 Unspecified right bundle-branch block (principal); R06.02 Shortness of breath; E66.01 Morbid (severe) obesity due to excess calories
CPT/HCPCS: 93306; Q9957

== ENCOUNTER → 2021-10-14 09:57 | Outpatient (BNVA) | payer OTHER, SELFPAY | PROVIDERS: PCP Physician Assistant; Visit Provider Physician Assistant | DX: E66.9 Obesity, unspecified (principal); Z68.39 Body mass index [BMI] 39.0-39.9, adult | CPT/HCPCS: 99212 ==

== ENCOUNTER → 2021-11-26 11:12 | Outpatient (BNVA) | payer OTHER, SELFPAY | PROVIDERS: PCP Physician Assistant; Visit Provider Physician Assistant | DX: E66.01 Morbid (severe) obesity due to excess calories (principal); Z68.39 Body mass index [BMI] 39.0-39.9, adult | CPT/HCPCS: 99212 ==

== ENCOUNTER → 2021-12-17 10:57 | Outpatient (BNVA) | payer OTHER, SELFPAY | PROVIDERS: PCP Physician Assistant; Visit Provider Physician Assistant | DX: M17.11 Unilateral primary osteoarthritis, right knee (principal) | CPT/HCPCS: 20610; 99212; J1040 ==

== ENCOUNTER → 2022-02-11 15:51 | Outpatient (BNVA) | payer OTHER, SELFPAY | PROVIDERS: PCP Physician Assistant; Visit Provider Physician Assistant | DX: E66.01 Morbid (severe) obesity due to excess calories (principal) | CPT/HCPCS: 99212 ==

== ENCOUNTER 2022-02-19 10:23 | Day surgery (SDC) | payer OTHER, SELFPAY ==
[2022-02-15 11:06] VITALS: BMI 40.8
--- NOTE | 2022-02-18 09:21 | HO.ANESPROP2 ---
Documented by User: Edilia Wilburn NP 02/18/22 09:26 HPI - Anesthesia Eval Consult details Narrative: 46yo F for Upper Endoscopy PMFSH Active Problems Active Problems: All Active Problems (Updated 10/14/21 @ 10:25 by [place] Alanis PA-C) History of sleeve gastrectomy (Acute) Obesity (Acute) Pericardial effusion (Acute) Major depression in remission (Acute) Generalized anxiety disorder (Acute) Incomplete RBBB (Acute) Osteoarthritis of right knee (Acute) Pes anserine bursitis (Acute) Sacroiliitis (Acute) Morbid obesity due to excess calories (Acute) Preoperative examination (Acute) Shortness of breath (Acute) Body mass index (BMI) of 40.1 to 44.9 in adult (Acute) Vitamin D deficiency (Acute) Vitamin B1 deficiency (Acute) Vitamin A deficiency (Acute) NAFL (nonalcoholic fatty liver) (Acute) Tear of medial meniscus of right knee (Acute) Disc degeneration, lumbar (Acute) Low back pain (Acute) 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 myelopathy (Acute) Pericardial effusion (Acute) Rheumatoid factor positive (Acute) SANJAY positive (Acute) Past Medical History Medical History SANJAY positive Asthma Disc degeneration, lumbar Fibromyalgia History of migraine headaches History of umbilical hernia Low back pain Mesenteric adenitis Pericardial effusion Rheumatoid factor positive Sacroiliitis Sleep apnea 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 Family history of problems with anesthesia: No Surgical History Surgical History (Updated 02/11/22 @ 16:14 by [place] Alanis PA-C) History of section History of colonoscopy History of hysterectomy History of lateral meniscus repair of left knee History of sleeve gastrectomy Hx of endoscopy Hx of esophagogastroduodenoscopy History of Problems with Anesthesia: No Social History Social History Are you a primary ocular care technician to a significant other at home: No Do you presently have visiting nurse or other home services: No Alcohol intake: current Alcohol intake frequency: does not drink Patient Tobacco Use Status: Never used Tobacco Are you DNR?: No Advance Directives: No Advance Directives Information Provided: Yes Patient : No Current occupational status: employed Current occupation: [employer] - Right handed Meds Allergies Allergy/AdvReac Type Severity Reaction Status Date / Time shrimp [SHRIMP] Allergy Severe ANAPHYLAXIS Verified 02/11/22 15:56 Home Medications Medication Instructions Recorded Confirmed Last Taken Type albuterol sulfate 90 mcg/actuation 2 puff inhalation Q6H PRN 05/16/20 11/26/21 Unknown History aerosol inhaler Shortness Of Breath Or Wheezing cetirizine 10 mg tablet (Zyrtec) 10 mg PO DAILY 05/16/20 11/26/21 Unknown History epinephrine 0.3 mg/0.3 mL 0.3 mg IM Q15M PRN Anaphylaxis 05/16/20 11/26/21 Unknown History injection, auto-injector ibuprofen 800 mg tablet 800 mg PO Q8H PRN pain 11/26/21 Unknown History Exam Exam Date and Time: February 18, 2022 0921 Height,Weight and Vital Signs: Height 5 ft 1 in Weight 97.976 kg Pertinent Lab Results Pertinent Lab Results: Laboratory Tests 08/10/21 08/10/21 09:04 09:04 WBC 7.4 Hgb 13.2 Hct 40.7 Plt Count 275 Sodium 139 Potassium 4.3 Chloride 105 Carbon Dioxide 29 BUN 12 Creatinine 0.72 Narrative Narrative: EKG 08/2021 Vent. Rate : 068 BPM ? ? Atrial Rate : 068 BPM ?? P-R Int : 152 ms? QRS Dur : 096 ms ? ? QT Int : 394 ms ? ? ? P-R-T Axes : 043 -07 028 degrees ?? QTc Int : 418 ms ? Normal sinus rhythm with sinus arrhythmia Incomplete right bundle branch block Borderline ECG When compared with ECG of 23-JUL-2020 07:52, No significant change was found ECHO 09/2021 Conclusions: - 1. Normal LV systolic and diastolic function ? 2. Mild mitral regurgitation ? 3. Normal RV systolic pressure ? 4. Small to moderate pericardial effusion? ?? NM cardiolite stress test 09/2021 Impression: ? 1.? Myocardial perfusion imaging study shows likely normal myocardial perfusion. No evidence of any ischemia or infarction. 2.? Gated LVEF is 71% during stress and 70% during rest. 3. Transient ischemic dilatation not present. ? EKG component of the test reported separately. Assessment and Plan Assessment Anesthesia Assessment: Chart Reviewed Final Anesthetic Review Family History of Problems with Anesthesia: No History of Problems with Anesthesia: No Documented by User: Summer Gonzalez MD 02/19/22 11:33 [facility] Past Medical History Medical History SANJAY positive Asthma Disc degeneration, lumbar Fibromyalgia History of migraine headaches History of umbilical hernia Low back pain Mesenteric adenitis Pericardial effusion Rheumatoid factor positive Sacroiliitis Sleep apnea 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 Surgical History Surgical History (Updated 02/11/22 @ 16:14 by [place] Alanis PA-C) History of section History of colonoscopy History of hysterectomy History of lateral meniscus repair of left knee History of sleeve gastrectomy Hx of endoscopy Hx of esophagogastroduodenoscopy Social History Social History Are you a primary ocular care technician to a significant other at home: No Do you presently have visiting nurse or other home services: No Alcohol intake: current Alcohol intake frequency: does not drink Patient Tobacco Use Status: Never used Tobacco Are you DNR?: No Advance Directives: No Advance Directives Information Provided: Yes Patient : No Current occupational status: employed Current occupation: [employer] - Right handed Meds Allergies Allergy/AdvReac Type Severity Reaction Status Date / Time shrimp [SHRIMP] Allergy Severe ANAPHYLAXIS Verified 02/11/22 15:56 Home Medications Medication Instructions Recorded Confirmed Last Taken Type albuterol sulfate 90 mcg/actuation 2 puff inhalation Q6H PRN 05/16/20 11/26/21 Unknown History aerosol inhaler Shortness Of Breath Or Wheezing cetirizine 10 mg tablet (Zyrtec) 10 mg PO DAILY 05/16/20 11/26/21 Unknown History epinephrine 0.3 mg/0.3 mL 0.3 mg IM Q15M PRN Anaphylaxis 05/16/20 11/26/21 Unknown History injection, auto-injector ibuprofen 800 mg tablet 800 mg PO Q8H PRN pain 11/26/21 Unknown History Exam Airway Mallampati Class: I TM Dist: >3cm Neck ROM: Full Assessment and Plan Assessment Anesthesia Assessment: Anesthesia Plan Discussed Final Anesthetic Review NPO: Yes ASA Class: III Final Preanesthetic Review: No Changes in Pt Med Stat, Meds/Allgs Chart Reviewed, Consent Obtained/Reviewed and Anes Risks/Benef Reviewed Patient Risk: Intermediate Procedure Risk: Low Anesthetic Plan Anesthetic Plan: MAC: Disposition: Standard PACU
--- NOTE | 2022-02-18 23:00 | MHC.SHP ---
Pre-Procedural Eval Section A Date of Service: 02/18/22 The patient is an INPATIENT: No The History & Physical has been completed within 30 days and I have reviewed it.: Yes Section B Chief Complaint: bariactric surgey status Relevant Family History (Specify if Yes): No Relevant Social History: None Present Medications: see Short Stay Collaborative assessment Medical History: No relevant PMH History of Previous Operations: Relevant previous surgery/procedure and date(s) (sleeve gastrectomy) Allergies: Allergies Allergy/AdvReac Type Severity Reaction Status Date / Time shrimp [SHRIMP] Allergy Severe ANAPHYLAXIS Verified 02/11/22 15:56 Review of Systems Sugical H&P ROS: Negative: Constitution, Cardiovascular, Respiratory, Neurological, Psychiatric, Hem-Onc, Allergic/Immunologic, Gastrointestinal, Genitourinary, Musculoskeletal, Integumentary, Endocrine and Eyes/Ears/Nose/Throat Exam Surgical H&P Exam: Normal: HEENT, Normal: Heart, Normal: Lungs, Normal: Extremities, Normal: Abdomen, Normal: Skin and Normal: Neurological Plan Diagnosis/Plan: Unchanged I have reviewed the history and physical and performed a pertinent physical examination on my patient. No changes have occurred unless specified.
--- NOTE | 2022-02-19 | ECG_ITS ---
Test Reason : pericardial effussion Blood Pressure : / mmHG Vent. Rate : 069 BPM Atrial Rate : 069 BPM P-R Int : 144 ms QRS Dur : 088 ms QT Int : 400 ms P-R-T Axes : 022 -23 019 degrees QTc Int : 428 ms Normal sinus rhythm Cannot rule out Anterior infarct , age undetermined Abnormal ECG When compared with ECG of 10-AUG-2021 08:52, No significant change was found Referred By: Edilia Wilburn Electronically Signed By:POOJA QUINN
--- NOTE | ~2022-02-19 | XR_ITS ---
EXAMINATION: XR CHEST CLINICAL INFORMATION: Pericardial effusion COMPARISON: Previous chest x-ray most recent August 2021 TECHNIQUE: 2 views of the chest were obtained. FINDINGS: The cardiac and mediastinal contours are stable. The lungs are clear. There is no pleural effusion or pneumothorax. There are degenerative changes of the spine. XR/XR chest 2V IMPRESSION: Stable chest x-ray from August 2021. No enlargement of the cardiac silhouette.
[2022-02-19 10:50] VITALS: BP 123/80; PULSE 72; RESP 8; TEMP 36.6; O2SAT 97
[2022-02-19] MEDS: Lactated Ringers 1,000 ML 80 ML IVCONT (11:02)
--- NOTE | 2022-02-19 12:26 | PM.OP ---
Brief Operative Note Date of Service: 02/19/22 Pre-op diagnosis: GERD, s/p sleeve gastrectomy Post-op diagnosis: same Procedure: PROCEDURE DATE: 02/19/2022 PREOPERATIVE DIAGNOSIS: GERD, s/p sleeve gastrectomy POSTOPERATIVE DIAGNOSIS: ?Same as above. 1) incomplete gastric fundus resection, 2) incomplete antral resection PROCEDURE: [id number] with biopsies Surgeon: ?Anant Cortes M.D.. Ph.D. Skin Specialist: None ? Anesthesia: IV sedation Estimated blood loss: ?Minimal FINDINGS AND PROCEDURE: ? OPERATIVE INDICATIONS: ?The patient is a 46 year old female known to me who underwent a laparoscopic sleeve gastrectomy. The patient had inadequate weight loss. an UGI reveals an incomplete gastric fundus resection as well as retention of the antral part of the stomach. The patient also has GERD. Based on this information I recommended an upper endoscopy to evaluate the patient's symptoms and UGI findings, Risks and complications of the surgery were discussed with the patient in advance particularly the possibility of perforation or bleeding that may require surgical intervention. The patient understood the risks and was in agreement with the plan. ? PROCEDURE: After informed consent was obtained by the patient, the patient was ?transferred to the Operating Room and was placed in the supine position.? After successful induction of IV sedation, a mouth block was inserted and the patient was placed in the left lateral decubitus position. An upper endoscopy was performed next, the oropharynx and esophagus appeared within the normal limits. There was no hiatal hernia. The z-line was smooth. Two biopsies were obtained from the distal esohagus 2-3 cm proximal to the GE junction and two additional biopsies from the GE junction. The sleeve was entered. There was significant distention of the proximal gastric fundus suggestive of incomplete resection at the time of the sleeve gastrectomy. The caliber of the remaining sleeve was even but it was also larger than it should be. There was no stricture or ulcer. Biopsies were obtained from the proximal sleeve as well as the distal antrum. No significant bleeding was noted from any of the biopsy sites. There was also incomplete resection of the gastric antrum. The scope was then advanced into the duodenum which appeared to be normal as well. At that point the duodenum ?and the sleeve were decompressed and the scope was withdrawn from the patient's mouth. The patient extubated and was transferred in stable condition to the Recovery Room for further care. I was present and performed all steps of the procedure. There were no residents to assist with this case. Anant Cortes M.D., Ph.D. Surgeon: John Paul Cortes MD Anesthesia: MAC Was an Skin Specialist used for this Procedure?: No Estimated blood loss (mL): 0 IV fluids (mL): 400 Urine output (mL): 0 Pathology: other (1) GE junction x2, distal esophagus x2, 3) proximal sleeve x1, 4) antrum x1 ) Condition: stable Disposition: PACU
[2022-02-19 13:29] VITALS: BP 111/73; PULSE 75; RESP 16; TEMP 36.4; O2SAT 99
[2022-02-19 13:44] VITALS: BP 115/69; PULSE 75; RESP 17; O2SAT 96
[2022-02-19 13:59] VITALS: BP 115/74; PULSE 68; RESP 15; O2SAT 95
[2022-02-19 14:14] VITALS: BP 109/75; PULSE 75; RESP 16; TEMP 36.3; O2SAT 97
== END 2022-02-19 14:41 | disposition home or self-care (01) ==
PROVIDERS: PCP Physician Assistant; Visit Provider Surgery
PROC: 0DJ08ZZ Inspection of Upper Intestinal Tract, Via Natural or Artificial Opening Endoscopic (ICD-10-PCS; CPT 43235; principal; 2022-02-19 12:20)
DX: K21.9 Gastro-esophageal reflux disease without esophagitis (principal); Z98.84 Bariatric surgery status; K31.89 Other diseases of stomach and duodenum; K29.50 Unspecified chronic gastritis without bleeding; B96.81 Helicobacter pylori [H. pylori] as the cause of diseases classified elsewhere; Z90.3 Acquired absence of stomach [part of]; G47.33 Obstructive sleep apnea (adult) (pediatric); M79.7 Fibromyalgia; J45.909 Unspecified asthma, uncomplicated; M05.9 Rheumatoid arthritis with rheumatoid factor, unspecified; E66.01 Morbid (severe) obesity due to excess calories; Z68.41 Body mass index [BMI] 40.0-44.9, adult
CPT/HCPCS: 43239; 71046; 88305; 88342; 93005; J3010

== ENCOUNTER → 2022-03-03 14:54 | Outpatient (BNVA) | payer OTHER, SELFPAY | PROVIDERS: PCP Physician Assistant; Referring Provider Physician Assistant; Visit Provider Internal Medicine | DX: Z01.810 Encounter for preprocedural cardiovascular examination (principal); I31.3 Pericardial effusion (noninflammatory); E66.01 Morbid (severe) obesity due to excess calories; Z68.41 Body mass index [BMI] 40.0-44.9, adult | CPT/HCPCS: 99202 ==

== ENCOUNTER → 2022-04-15 13:41 | Outpatient (REF) | payer OTHER, SELFPAY ==
--- NOTE | 2022-04-15 13:43 | CA_ITS ---
Transthoracic Echocardiogram Patient (Last, First, Middle): Jerica Caputo X Gender: Female Date of : 1975 Age: 46 Procedure Date: 04/15/2022 Procedure Type: Transthoracic Echocardiogram Location: OP Height: 154.94 cm Weight: 95.71 kg BSA: 1.93 m2 Heart Rate: 84 bpm BP: 114 / 68 mmHg Local Superintendent: CRISTOFER Referring MD: Juan Miguel Gomez MD Symptoms: I31.3 - Pericardial effusion (noninflammatory) Study Quality: Adequate ECG Rhythm: Sinus Conclusions: - Small to moderate circumferential pericardial effusion. Findings Left Ventricle Normal left ventricular cavity size. The left ventricular systolic function is normal. The visually estimated ejection fraction is between 65-70%. Pericardium/Pleural There are no definitive echocardiographic findings of tamponade physiology. Small to moderate circumferential pericardial effusion. Prior Study Comparison No significant change compared to prior study dated: 09/23/2021. Measurements Tricuspid Valve RA Press: 3.00 Updated in Other Vendor System with Status of Final Juan Miguel Gomez MD electronically signed on 04/16/2022 3:48:54 PM with status of Final
== END ==
LOC: HO.CARD 13:41
PROVIDERS: Visit Provider Internal Medicine
DX: I31.39 Other pericardial effusion (noninflammatory) (principal)
CPT/HCPCS: 93308

== ENCOUNTER → 2022-08-02 12:58 | Outpatient (BNVA) | payer OTHER, SELFPAY | PROVIDERS: PCP Physician Assistant; Visit Provider Physician Assistant | DX: E66.01 Morbid (severe) obesity due to excess calories (principal); Z68.41 Body mass index [BMI] 40.0-44.9, adult; I45.10 Unspecified right bundle-branch block; Z98.84 Bariatric surgery status | CPT/HCPCS: 99212 ==

== ENCOUNTER → 2022-09-02 16:00 | Outpatient (BNVA) | payer OTHER, SELFPAY | PROVIDERS: PCP Physician Assistant; Visit Provider Physician Assistant | DX: Z13.89 Encounter for screening for other disorder (principal) ==

== ENCOUNTER → 2022-10-06 08:47 | Outpatient (BNVA) | payer MEDICAID, SELFPAY | PROVIDERS: PCP Physician Assistant; Visit Provider Dietitian, Registered | DX: E66.01 Morbid (severe) obesity due to excess calories (principal) | CPT/HCPCS: 97803 ==

== ENCOUNTER → 2024-11-20 08:17 | Outpatient (RCR) | payer OTHER, SELFPAY ==
--- NOTE | 2020-06-19 13:34 | MHC.PT.DC ---
[facility] [place] [facility] [place] [facility] [place] [facility] [address] [place] [address] [facility] [phone] F: [phone] F: [phone] F: [phone] F: [phone] Physical Therapy Discharge Report Diagnosis: R leg strain Date of Surgery: Date of Evaluation: 03/27/20 Date of Discharge: Treatments to Date: 10 Cancellations to Date: 4 No Shows to Date: 0 Discharge Status: Patient Elected to Stop Physician Discontinued Tx Discharge Summary: Jerica has attended 10 treatments with inconsistent home program compliance and minimal symptom improvements. Pt called to inform therapy she will seek alternative treatment. Electronically signed by: Jason Lockett PT. Please sign and return to therapist. Thank you for your referral.
== END | disposition home or self-care (01) ==
LOC: HO.PTCHIC 04-10 16:53
PROVIDERS: Visit Provider Internal Medicine
DX: S76.311D Strain of muscle, fascia and tendon of the posterior muscle group at thigh level, right thigh, subsequent encounter (principal); R10.30 Lower abdominal pain, unspecified
CPT/HCPCS: 97014; 97110; 97140